=== PATIENT | male | born 2005 | race African-American/Black ===

== ENCOUNTER 2024-05-30 12:07 | Emergency (ER) | payer SELFPAY ==
[~2024-05-30] VITALS: Ht 170.2 cm; Wt 59.0 kg
[2024-05-30 12:21] VITALS: BP 115/82; PULSE 82; RESP 16; TEMP 98.3; O2SAT 97
[2024-05-30] MEDS ORDERED: P50 MT (16:58)
== END 2024-05-30 17:18 | disposition home or self-care (01) ==
LOC: ER 12:07
DX: R21 Rash and other nonspecific skin eruption (principal)
CPT/HCPCS: 99283